=== PATIENT | female | born 1960 | race Caucasian/White ===

== ENCOUNTER 2016-12-13 15:20 | Outpatient (CLI) | payer OTHER | END 2016-12-13 15:21 | disposition home or self-care (01) | DX: M51.36 Other intervertebral disc degeneration, lumbar region (principal) ==

== ENCOUNTER 2017-02-08 14:29 | Emergency (ER) | payer OTHER | END 2017-02-08 18:40 | disposition home or self-care (01) | DX: R20.9 Unspecified disturbances of skin sensation (principal); R03.0 Elevated blood-pressure reading, without diagnosis of hypertension; E83.52 Hypercalcemia; E89.2 Postprocedural hypoparathyroidism ==

== ENCOUNTER 2017-02-15 09:34 | Outpatient (CLI) | payer OTHER | END 2017-02-15 09:35 | disposition home or self-care (01) | DX: E21.0 Primary hyperparathyroidism (principal) ==

== ENCOUNTER 2017-03-14 10:01 | Outpatient (CLI) | payer OTHER | END 2017-03-14 10:02 | disposition home or self-care (01) | DX: E53.8 Deficiency of other specified B group vitamins (principal) ==

== ENCOUNTER 2017-08-02 11:47 | Outpatient (CLI) | payer OTHER | END 2017-08-02 11:48 | disposition home or self-care (01) | LOC: LAB 11:47 | PROVIDERS: ATTEND Surgery | DX: E21.3 Hyperparathyroidism, unspecified (principal) | CPT/HCPCS: 36415; 82310 ==

== ENCOUNTER 2017-08-03 15:02 | Outpatient (CLI) | payer OTHER ==
--- NOTE | 2017-08-04 09:59 | XRAY Report ---
LEFT HIP AND PELVIS: 08/03/2017 CLINICAL INDICATION: Left hip pain. FINDINGS: Frontal view of the hips and pelvis and frogleg lateral view of the left hip demonstrate n o evidence of fracture or dislocation. The joint spaces are preserved. No radiopaque foreign body i s seen in the soft tissues. IMPRESSION: NORMAL LEFT HIP AND PELVIS. JOB #: [id number] EXT JOB #:[id number]
== END 2017-08-03 15:03 | disposition home or self-care (01) ==
LOC: DI 15:02
PROVIDERS: ATTEND Physician Assistant Medical
DX: M25.552 Pain in left hip (principal)

== ENCOUNTER 2017-10-12 07:54 | Outpatient (CLI) | payer OTHER ==
--- NOTE | 2017-10-12 11:13 | MRI Report ---
EXAM: LEFT HIP MRI WITHOUT CONTRAST EXAM DATE: 10/12/2017 08:45 AM. CLINICAL HISTORY: Left hip joint pain. COMPARISON: 08/03/2017 radiograph. TECHNIQUE: Multiplanar, multisequence T1-weighted and fluid-sensitive, small [id number] sequences of the hip and large [id number]-ah-[id number] sequences of the pelvis without contrast. Other: None. FINDINGS: Bones: No fractures or subluxations. No marrow edema or bone lesions. Left Hip: No acetabular retroversion. Femoral head/neck offset is within normal limits. No effusion o r loose bodies. The articular cartilage is intact. A full-thickness tear of the anterosuperior labrum can be seen at the 2 o'clock position (series 701, image 21). The ligamentum teres is intact. Other Joints: The visualized lumbar spine, sacroiliac joints, symphysis pubis, and contralateral hip are unremarkable. Musculature: No edema or fatty atrophy. The gluteus medius and minimus tendons are normal. The visua lized hamstring tendons are normal. The ischiofemoral space is normal. Pelvic Cavity: The visualized viscera are unremarkable. No lymphadenopathy. No free fluid in the pelv is. Other: The visualized sciatic nerves are unremarkable. No bursitis. The subcutaneous tissues are unre markable. IMPRESSION: 1. Full-thickness tear of the anterosuperior left labrum. [facility] MUSCULOSKELETAL RADIOLOGY SECTION Referring Provider Line: [phone] SITE ID: [id number]
== END 2017-10-12 07:55 | disposition home or self-care (01) ==
LOC: DI 07:54
PROVIDERS: ATTEND Physician Assistant Medical
DX: S73.192A Other sprain of left hip, initial encounter (principal)

== ENCOUNTER 2018-01-19 08:38 | Emergency (ER) | payer OTHER ==
[2018-01-19 09:04] VITALS: BP 143/88
--- NOTE | 2018-01-19 09:14 | ED Physician Documentation ---
PD HPI SKIN - Stated complaint Stated Complaint: FACE SWELLING - Chief complaint Chief Complaint: Allergic Rx - History obtained from History obtained from: Patient, Family (spouse) - History of Present Illness Timing - onset: How many days ago (2) Timing - details: Gradual onset, Now resolved Location: Face (swelling of lips.) Quality / character: Swelling Improved by: Benadryl Contributing factors: Unknown Similar symptoms before: Has not had sx before - Treatment prior to arrival Treatment prior to arrival: Benadryl 25 mg at 3 am. Review of Systems Constitutional: denies: Fever Eyes: denies: Photophobia, Irritation Ears: denies: Ear pain, Tinnitus/ringing Nose: denies: Congestion Throat: reports: Other (Slight swelling in throat last night, but not currently. ). denies: Sore throat Cardiac: denies: Chest pain / pressure, Palpitations Respiratory: denies: Dyspnea, Cough GI: denies: Abdominal Pain, Nausea, Vomiting : denies: Dysuria Skin: denies: Rash Musculoskeletal: denies: Extremity swelling Neurologic: denies: Focal weakness, Numbness, Headache PD PAST MEDICAL HISTORY - Past Medical History Endocrine/Autoimmune: Other (hypercalcemia) - Past Surgical History Past Surgical History: Yes Other past surgical history: Parathyroid surgery 01/2017. - Present Medications Home Medications: Ambulatory Orders Medication Instructions Recorded Confirmed Alendronate [Fosamax] 70 mg PO .FREQ 02/08/17 02/08/17 Estradiol [Vagifem] 1 tab .ROUTE DAILY 02/08/17 02/08/17 oxyCODONE [Roxicodone] 1 tab PO Q4HR 02/08/17 02/08/17 - Allergies Allergies/Adverse Reactions: Allergies Allergy/AdvReac Type Severity Reaction Status Date / Time camphor [From Biofreeze] Allergy Unknown Verified 01/19/18 09:21 capsaicin Allergy Unknown Verified 01/19/18 09:21 [From Salonpas (capsaicin/menthol)] meloxicam Allergy Hives Verified 01/19/18 09:21 menthol [From Biofreeze] Allergy Unknown Verified 01/19/18 09:21 Penicillins Allergy Hives Verified 02/08/17 14:34 - Social History Does the pt smoke?: No Smoking Status: Never smoker Does the pt drink ETOH?: No Does the pt have substance abuse?: No PD ED PE NORMAL - Vitals Vital signs reviewed: Yes (Borderline hypertension initially.) - General General: Alert and oriented X 3, No acute distress, Well developed/nourished - HEENT HEENT: Atraumatic, EOMI, Ears normal, Moist mucous membranes, Pharynx benign, Other (No swelling of lips currently.) - Neck Neck: Supple, no meningeal sign, No adenopathy, No JVD - Cardiac Cardiac: RRR, No murmur - Respiratory Respiratory: No respiratory distress, Clear bilaterally - Abdomen Abdomen: Soft, Non tender - Back Back: No CVA TTP - Derm Derm: No rash - Extremities Extremities: No edema, No calf tenderness / cord - Neuro Neuro: Alert and oriented X 3, No motor deficit, Normal speech Results - Vitals Vitals: Vital Signs - 24 hr 01/19/18 01/19/18 08:55 09:20 Temperature 36.6 C Heart Rate 70 Respiratory 18 Rate Blood Pressure 143/88 H O2 Saturation 96 Oxygen O2 Source Room air PD MEDICAL DECISION MAKING - ED course Complexity details: reviewed old records, considered differential, d/w patient, d/w family ED course: The patient's presentation is significant for transient lip swelling, which seems to have responded well to Benadryl that was taken at 3 AM today, 6 hours prior to arrival. There is no evidence of facial swelling currently, oropharynx is benign, and chest is clear to auscultation. It is unknown what is the likely allergen causing the patient's symptoms. There is no further evaluation or treatment that is clinically indicated at this time. I discussed with the patient and her symptomatic treatment, outpatient follow-up, and potentially worrisome signs or symptoms that should prompt reevaluation in the emergency department. Departure - Departure Disposition: 01 Home, Self Care Clinical Impression: Lip swelling Condition: Stable Instructions: ED Allergic Reaction General Other Follow-Up: Modesta Dewitt PA-C [Primary Care Provider] - Comments: You can use Benadryl up to 50 mg 3 times daily if needed for recurrent swelling or itching. Follow up with your primary physician within 1-2 weeks. Call to schedule an appointment. Return to the emergency department if you develop increasing difficulty swallowing, shortness of breath, or otherwise worsening symptoms.
== END 2018-01-19 09:31 | disposition home or self-care (01) ==
LOC: ED 08:38
DX: R22.9 Localized swelling, mass and lump, unspecified (principal)
CPT/HCPCS: 99282; 99283

== ENCOUNTER 2018-02-27 13:46 | Outpatient (CLI) | payer OTHER ==
[2018-02-27 14:17] LABS: BASOPHILS # (AUTO) 0.1 10^3/uL (0.0-0.1); EOSINOPHILS # (AUTO) 0.1 10^3/uL (0.0-0.7); EOSINOPHILS % (AUTO) 1.1 %; HGB - HEMOGLOBIN 13.5 g/dL (12.0-16.0); LYMPHOCYTES # (AUTO) 1.5 10^3/uL (1.5-3.5); LYMPHOCYTES % (AUTO) 27.2 %; MEAN CORPUSCULAR HEMOGLOBIN 28.5 pg (27.0-31.0); MEAN CORPUSCULAR HGB CONC 33.5 g/dL (32.0-36.0); MONOCYTES # (AUTO) 0.4 10^3/uL (0.0-1.0); NEUTROPHILS # (AUTO) 3.4 10^3/uL (1.5-6.6); NEUTROPHILS % (AUTO) 63.7 %; PLT - PLATELET COUNT 216 10^3/uL (130-450); RED BLOOD COUNT 4.74 10^6/uL (4.20-5.40); RED CELL DISTRIBUTION WIDTH 13.5 % (12.0-15.0); WHITE BLOOD COUNT 5.4 x10^3/uL (4.8-10.8)
== END 2018-02-27 13:47 | disposition home or self-care (01) ==
LOC: LAB 13:46
PROVIDERS: ATTEND Allergy & Immunology
DX: T78.3XXA Angioneurotic edema, initial encounter (principal)
CPT/HCPCS: 36415; 81599; 85025; 86140; 86160; 86161

== ENCOUNTER 2018-03-06 13:01 | Outpatient (CLI) | payer OTHER | END 2018-03-06 13:02 | disposition home or self-care (01) | LOC: LAB 13:01 | PROVIDERS: ATTEND Orthopaedic Surgery | DX: T78.3XXA Angioneurotic edema, initial encounter (principal) | CPT/HCPCS: 36415; 86160; 86161 ==

== ENCOUNTER 2018-11-06 07:38 | Outpatient (CLI) | payer OTHER ==
[2018-11-06 08:12] LABS: EOSINOPHILS % (AUTO) 1.2 %; HGB - HEMOGLOBIN 14.4 g/dL (12.0-16.0); LYMPHOCYTES # (AUTO) 1.3 10^3/uL (1.5-3.5); LYMPHOCYTES % (AUTO) 34.3 %; MEAN CORPUSCULAR HGB CONC 33.9 g/dL (32.0-36.0); MEAN CORPUSCULAR VOLUME 85.3 fL (81.0-99.0); MONOCYTES # (AUTO) 0.3 10^3/uL (0.0-1.0); MONOCYTES % (AUTO) 7.9 %; NEUTROPHILS # (AUTO) 2.2 10^3/uL (1.5-6.6); NEUTROPHILS % (AUTO) 55.6 %; PLT - PLATELET COUNT 241 10^3/uL (130-450); RED BLOOD COUNT 4.97 10^6/uL (4.20-5.40); RED CELL DISTRIBUTION WIDTH 12.9 % (12.0-15.0); WHITE BLOOD COUNT 3.9 x10^3/uL (4.8-10.8)
[2018-11-06 08:32] LABS: ALBUMIN 4.4 g/dL (3.2-5.5); ALBUMIN/GLOBULIN RATIO 1.6 (1.0-2.2); ALKALINE PHOSPHATASE 48 IU/L (42-121); ALT ALANINE AMINOTRANSFERASE 20 IU/L (10-60); AST ASPARTATE AMINOTRANSFERASE 23 IU/L (10-42); BILIRUBIN,TOTAL 0.7 mg/dL (0.2-1.0); BUN - BLOOD UREA NITROGEN 15 mg/dL (6-20); CARBON DIOXIDE - CO2 31 mmol/L (21-32); CHLORIDE 104 mmol/L (101-111); CHOLESTEROL 231 mg/dL; CREATININE 0.8 mg/dL (0.4-1.0); GFR - MDRD 73 (>89); GLUCOSE 99 mg/dL (70-100); HDL CHOLESTEROL 76 mg/dL; LDL CHOLESTEROL,CALCULATED 134 mg/dL; LDL/HDL RATIO 1.8 (<4.4); SODIUM 138 mmol/L (135-145); TOTAL PROTEIN 7.1 g/dL (6.7-8.2); VLDL CHOLESTEROL 21 mg/dL
== END 2018-11-06 07:39 | disposition home or self-care (01) ==
LOC: LAB 07:38
PROVIDERS: ATTEND Physician Assistant Medical
DX: Z00.00 Encounter for general adult medical examination without abnormal findings (principal); E83.51 Hypocalcemia
CPT/HCPCS: 36415; 80053; 80061; 82306; 83721; 84443; 85025

== ENCOUNTER 2018-12-14 05:07 | Emergency (ER) | payer OTHER ==
[2018-12-14] MEDS ORDERED: SODIUM CHLORIDE 0.9% 1,000 ML IV ONE (05:39)
[2018-12-14 06:09] LABS: BASOPHILS % (AUTO) 0.9 %; HGB - HEMOGLOBIN 14.1 g/dL (12.0-16.0); LYMPHOCYTES # (AUTO) 1.1 10^3/uL (1.5-3.5); LYMPHOCYTES % (AUTO) 29.9 %; MEAN CORPUSCULAR HEMOGLOBIN 29.1 pg (27.0-31.0); MEAN CORPUSCULAR HGB CONC 33.6 g/dL (32.0-36.0); MEAN CORPUSCULAR VOLUME 86.5 fL (81.0-99.0); MONOCYTES # (AUTO) 0.3 10^3/uL (0.0-1.0); MONOCYTES % (AUTO) 8.6 %; NEUTROPHILS # (AUTO) 2.3 10^3/uL (1.5-6.6); NEUTROPHILS % (AUTO) 59.6 %; PLT - PLATELET COUNT 204 10^3/uL (130-450); RED BLOOD COUNT 4.86 10^6/uL (4.20-5.40); WHITE BLOOD COUNT 3.8 x10^3/uL (4.8-10.8)
[2018-12-14 06:18] LABS: ALBUMIN 3.9 g/dL (3.2-5.5); ALBUMIN/GLOBULIN RATIO 1.3 (1.0-2.2); BILIRUBIN,TOTAL 0.7 mg/dL (0.2-1.0); CALCIUM 8.9 mg/dL (8.5-10.3); CREATININE 0.7 mg/dL (0.4-1.0)
[2018-12-14] MEDS ORDERED: IOVERSOL 320 100 ML VIAL IVP ONE ×2 (06:26→06:34)
[2018-12-14] MEDS ORDERED: IOVERSOL 320 50 ML VIAL PO ONE (06:34)
--- NOTE | 2018-12-14 06:48 | CT Report ---
Reason: pain, no BM Procedure Date: 12/14/2018 Accession Number: [id number] / [id number] Procedure: CT - Abdomen/Pelvis W/ CPT Code: FULL RESULT: EXAM: CT ABDOMEN AND PELVIS EXAM DATE: 12/14/2018 06:38 AM. CLINICAL HISTORY: Pain, no BM. COMPARISONS: None. TECHNIQUE: Routine helical CT imaging was performed through the abdomen and pelvis. IV contrast: [id number] 90ML. Enteric contrast: No. Reconstructions: Coronal and sagittal. In accordance with CT protocol optimization, one or more of the following dose reduction techniques were utilized for this exam: automated exposure control, adjustment of mA and/or KV based on patient size, or use of iterative reconstructive technique. FINDINGS: Lung Bases: Unremarkable. Liver: Normal. No masses. Gallbladder/Bile Ducts: Unremarkable. Spleen: Normal. Pancreas: Normal. Adrenal Glands: Normal. Kidneys: Cortical cysts. No hydronephrosis or nephrolithiasis. Peritoneal Cavity/Bowel: Normal. No free fluid, free air or adenopathy. No masses or acute inflammatory process. The appendix is well visualized and normal. Pelvic Organs: Normal. The bladder and visualized pelvic organs are within normal limits. Vasculature: No aneurysms or other significant abnormality. Bones: Mild degenerative changes. Other: Gas in the left breast, compatible with recent lumpectomy. IMPRESSION: No evidence of bowel obstruction. No evident etiology for patient's pain. [facility]
--- NOTE | 2018-12-14 06:56 | ED Physician Documentation ---
PD HPI ABD PAIN - Stated complaint Stated Complaint: ABD PAIN - Chief complaint Chief Complaint: Abd Pain - History obtained from History obtained from: Patient - History of Present Illness Timing - onset: How many hours ago (6) Timing - duration: Hours (6) Timing - details: Gradual onset Pain level max: 3 Pain level now: 3 Severity Comments: mild Quality: Cramping Location: All over / everywhere Radiation: No: Chest, Improved by: No: Eating, Laying still Worsened by: No: Eating, Moving Associated symptoms: Nausea. No: Fever, Vomiting Review of Systems Constitutional: reports: Reviewed and negative Eyes: reports: Reviewed and negative Ears: reports: Reviewed and negative Nose: reports: Reviewed and negative Throat: reports: Reviewed and negative Cardiac: reports: Reviewed and negative Respiratory: reports: Reviewed and negative GI: reports: Reviewed and negative : reports: Reviewed and negative Skin: reports: Reviewed and negative Musculoskeletal: reports: Reviewed and negative Neurologic: reports: Reviewed and negative Psychiatric: reports: Reviewed and negative Endocrine: reports: Reviewed and negative Immunocompromised: reports: Reviewed and negative PD PAST MEDICAL HISTORY - Past Medical History Past Medical History: Yes Endocrine/Autoimmune: Other 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 & MEDIA CORRESPONDENT: Breast cancer - Past Surgical History Past Surgical History: Yes Other past surgical history: Reviewed and not pertinent - Present Medications Home Medications: Ambulatory Orders Medication Instructions Recorded Confirmed Alendronate [Fosamax] 70 mg PO .FREQ 02/08/17 02/08/17 Estradiol [Vagifem] 1 tab .ROUTE DAILY 02/08/17 02/08/17 oxyCODONE [Roxicodone] 1 tab PO Q4HR 02/08/17 02/08/17 - Allergies Allergies/Adverse Reactions: Allergies Allergy/AdvReac Type Severity Reaction Status Date / Time camphor [From Biofreeze] Allergy Unknown Verified 12/14/18 05:16 capsaicin Allergy Unknown Verified 12/14/18 05:16 [From Salonpas (capsaicin/menthol)] meloxicam Allergy Hives Verified 12/14/18 05:16 menthol [From Biofreeze] Allergy Unknown Verified 12/14/18 05:16 Penicillins Allergy Hives Verified 12/14/18 05:16 - Social History Does the pt smoke?: No Smoking Status: Never smoker Does the pt drink ETOH?: Yes Does the pt have substance abuse?: No - Family History Family history: reports: Other (Reviewed and not pertinent) - Immunizations Immunizations are current?: Yes - POLST Patient has POLST: Yes PD ED PE NORMAL - Vitals Vital signs reviewed: Yes - General General: Alert and oriented X 3, No acute distress - HEENT HEENT: PERRL - Neck Neck: Supple, no meningeal sign - Cardiac Cardiac: RRR, No murmur - Respiratory Respiratory: Clear bilaterally - Abdomen Abdomen: Normal bowel sounds, Soft, Non tender, Non distended - Derm Derm: Warm and dry - Extremities Extremities: No deformity - Neuro Neuro: Alert and oriented X 3 - Psych Psych: Normal mood, Normal affect Results - Vitals Vitals: Vital Signs - 24 hr 12/14/18 05:12 Temperature 36.8 C Heart Rate 66 Respiratory 16 Rate Blood Pressure 157/75 H O2 Saturation 100 Oxygen O2 Source Room air - Labs Labs: Laboratory Tests 12/14/18 12/14/18 05:57 05:57 WBC 3.8 L RBC 4.86 Hgb 14.1 Hct 42.0 MCV 86.5 MCH 29.1 MCHC 33.6 RDW 13.0 Plt Count 204 MPV 9.0 Neut # (Auto) 2.3 Lymph # (Auto) 1.1 L [place] # (Auto) 0.3 Eos # (Auto) 0.0 Baso # (Auto) 0.0 Absolute Nucleated RBC 0.00 Nucleated RBC % 0.0 Sodium 139 Potassium 4.0 Chloride 102 Carbon Dioxide 30 Anion Gap 7.0 BUN 18 Creatinine 0.7 Estimated GFR (MDRD) 86 L Glucose 104 H Calcium 8.9 Total Bilirubin 0.7 AST 29 ALT 36 Alkaline Phosphatase 58 Total Protein 7.0 Albumin 3.9 Globulin 3.1 Albumin/Globulin Ratio 1.3 Lipase 27 - Rads (name of study) CT Abd Pel Radiology: Final report received (WNL) PD MEDICAL DECISION MAKING - ED course Complexity details: reviewed results, re-evaluated patient, considered differential, d/w patient, d/w family ED course: 58-year-old female with history of breast cancer presents with abdominal pain. Labs notable for neutropenia. CT abdomen pelvis unremarkable. Patient discharged with return precautions. Departure - Departure Disposition: 01 Home, Self Care Clinical Impression: Abdominal pain Qualifiers: Abdominal location: generalized Qualified Code(s): R10.84 - Generalized ab dominal pain Condition: Good Instructions: Abdominal Pain Follow-Up: Modesta Dewitt PA-C [Primary Care Provider] - Comments: No acute cause for your abdominal pain has been identified. Take MiraLAX as needed for constipation.All up with PCP within 24 hours for recheck. Return with worsening symptoms.
[2018-12-14 07:15] VITALS: BP 142/83
== END 2018-12-14 07:16 | disposition home or self-care (01) ==
LOC: ED 05:07
DX: R10.84 Generalized abdominal pain (principal); D70.9 Neutropenia, unspecified; C50.919 Malignant neoplasm of unspecified site of unspecified female breast
CPT/HCPCS: 36415; 74177; 80053; 83690; 85025; 99283

== ENCOUNTER 2018-12-24 09:56 | Outpatient (CLI) | payer OTHER | END 2018-12-24 09:57 | disposition home or self-care (01) | LOC: NS 09:56 | PROVIDERS: ATTEND Physician Assistant Medical | DX: Z71.3 Dietary counseling and surveillance (principal); C50.912 Malignant neoplasm of unspecified site of left female breast; Z68.1 Body mass index [BMI] 19.9 or less, adult | CPT/HCPCS: 97802 ==

== ENCOUNTER 2019-01-09 19:06 | Inpatient (IN) | payer OTHER ==
[2019-01-09 19:38] LABS: BILIRUBIN,URINE NEGATIVE (NEGATIVE); GLUCOSE, URINE (UA) 100 mg/dL (NEGATIVE); KETONES,URINE (UA) NEGATIVE (NEGATIVE); LEUKOCYTE ESTERASE, URINE NEGATIVE (NEGATIVE); NITRITE,URINE NEGATIVE (NEGATIVE); OCCULT BLOOD,URINE TRACE-LYSE (NEGATIVE); PH,URINE 5.5 PH (5.0-7.5); PROTEIN,URINE NEGATIVE (NEGATIVE); UROBILINOGEN,URINE 0.2 (NORMAL) E.U./dL (NORMAL)
[2019-01-09 19:40] LABS: CLARITY,URINE CLEAR (CLEAR)
[2019-01-09 19:57] LABS: BASOPHILS % (AUTO) 1.3 %; EOSINOPHILS % (AUTO) 0.9 %; HGB - HEMOGLOBIN 12.1 g/dL (12.0-16.0); MEAN CORPUSCULAR HEMOGLOBIN 28.4 pg (27.0-31.0); MEAN CORPUSCULAR HGB CONC 33.7 g/dL (32.0-36.0); MEAN CORPUSCULAR VOLUME 84.5 fL (81.0-99.0); MEAN PLATELET VOLUME 8.8 fL (7.9-10.8); MONOCYTES % (AUTO) 26.7 %; NEUTROPHILS % (AUTO) 5.1 %; PLT - PLATELET COUNT 146 10^3/uL (130-450); RED BLOOD COUNT 4.25 10^6/uL (4.20-5.40); RED CELL DISTRIBUTION WIDTH 12.2 % (12.0-15.0)
[2019-01-09 20:04] LABS: WHITE BLOOD COUNT 0.6 x10^3/uL (4.8-10.8)
[2019-01-09 20:06] LABS: ABNORMAL LYMPHS % (MANUAL) 0 %; BAND NEUTROPHILS % (MANUAL) 0 %
[2019-01-09 20:08] LABS: ALBUMIN 3.6 g/dL (3.2-5.5); ALBUMIN/GLOBULIN RATIO 1.4 (1.0-2.2); BILIRUBIN,TOTAL 0.5 mg/dL (0.2-1.0); CALCIUM 8.7 mg/dL (8.5-10.3); CREATININE 0.7 mg/dL (0.4-1.0); TOTAL PROTEIN 6.2 g/dL (6.7-8.2)
--- NOTE | 2019-01-09 20:12 | ED Physician Documentation ---
PD HPI URI - Stated complaint Stated Complaint: CHEMO/FEVER CHILLS - Chief complaint Chief Complaint: Fever - History obtained from History obtained from: Patient - History of Present Illness Timing - onset: Today Timing duration: Hours Timing details: Abrupt onset Associated symptoms: Fever (She has had general malaise and nausea for the last several days she thought related to the chemotherapy she had received 8 days ago. She did receive chemotherapy again yesterday at a smaller dose and now talked with her oncologist yesterday. She states she had some diarrhea 2 days ago and was controlled with Imodium. Normal bowel movements the next couple of days. She did not have any runny nose cough or sore throat. Her is feeling well without any illness. She developed an abrupt onset of general malaise aches and fevers today. She had a temperature of 101 at home. She came in for evaluation after calling the on-call oncologist.) Contributing factors: Immunocompromised, Other (post chemotherapy). No: Sick contact (Her is feeling well at home. She had been to the [facility] clinic yesterday but says she wore a mask and wash her hands well. She did receive chemotherapy 8 days ago. She had not been out of the house otherwise.), Travel Similar symptoms before: Has not had sx before Recently seen: Clinic ([facility] for chemotherapy) Review of Systems Constitutional: reports: Fever, Chills, Myalgias, Fatigue Nose: denies: Rhinorrhea / runny nose, Congestion Throat: denies: Sore throat Respiratory: denies: Dyspnea, Cough GI: reports: Abdominal Pain (mild crampy for the past 4-5 days), Nausea, Diarrhea (3-4 days ago for just one day, no BMs the past 2 days.). denies: Abdominal Swelling, Vomiting, Bloody / black stool : denies: Dysuria, Frequency Skin: denies: Rash (denies redness around the port.), Lesions Neurologic: reports: Generalized weakness. 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 - Past Surgical History Past Surgical History: Yes - Present Medications Home Medications: Ambulatory Orders Medication Instructions Recorded Confirmed oxyCODONE [Roxicodone] 1 tab PO Q4HR 02/08/17 01/09/19 Dexamethasone 8 mg PO BID 3 Days #12 tablet 12/28/18 01/09/19 LORazepam [Lorazepam] 0.5 mg PO Q6H PRN 01/08/19 01/09/19 Ondansetron HCl [Zofran] 4 mg PO Q4H PRN #30 tablet 01/08/19 01/09/19 Prochlorperazine Maleate 10 mg PO Q6H PRN 01/08/19 01/09/19 [Compazine] Acetaminophen [Tylenol] 1 tab PO Q4HR PRN 01/09/19 01/09/19 Cannabidiol (Cbd) Extract 01/09/19 [Epidiolex] Escitalopram [Lexapro] 1 tab PO DAILY 01/09/19 01/09/19 Loperamide [Imodium] 1 cap PO DAILY PRN 01/09/19 01/09/19 Polyethylene Glycol 3350 [Miralax] 1 packet PO DAILY PRN 01/09/19 01/09/19 - Allergies Allergies/Adverse Reactions: Allergies Allergy/AdvReac Type Severity Reaction Status Date / Time camphor [From Biofreeze] Allergy Unknown Verified 01/09/19 19:51 capsaicin Allergy Unknown Verified 01/09/19 19:51 [From Salonpas (capsaicin/menthol)] meloxicam Allergy Hives Verified 01/09/19 19:51 menthol [From Biofreeze] Allergy Unknown Verified 01/09/19 19:51 Penicillins Allergy Hives Verified 01/09/19 19:51 - Social History Does the pt smoke?: No Smoking Status: Never smoker Does the pt drink ETOH?: Yes Does the pt have substance abuse?: No - Immunizations Immunizations are current?: Yes - POLST Patient has POLST: Yes PD ED PE NORMAL - Vitals Vital signs reviewed: Yes - General General: Alert and oriented X 3, Well developed/nourished - HEENT HEENT: Ears normal, Moist mucous membranes, Pharynx benign - Neck Neck: Supple, no meningeal sign, No adenopathy - Cardiac Cardiac: RRR, No murmur - Respiratory Respiratory: Clear bilaterally, Other (chestwall port area without redness nor swelling. ) - Abdomen Abdomen: Normal bowel sounds, Soft, Non distended, No organomegaly, Other (mild general tenderness mid abdomen without percussion nor rebound tenderness. ) - Female Female : Deferred - Rectal Rectal: Deferred - Back Back: No CVA TTP - Derm Derm: Normal color, Warm and dry - Extremities Extremities: Normal ROM s pain, No edema, No calf tenderness / cord - Neuro Neuro: Alert and oriented X 3, No motor deficit, Normal speech Results - Vitals Vitals: Vital Signs - 24 hr 01/09/19 01/09/19 01/09/19 19:10 20:28 20:53 Temperature 38.5 C H 38.6 C H Heart Rate 84 77 79 Respiratory 18 16 17 Rate Blood Pressure 155/67 H 143/70 H 146/72 H O2 Saturation 97 100 99 01/09/19 01/09/19 01/09/19 21:00 21:37 22:00 Temperature 37.0 C 37.4 C Heart Rate 82 85 81 Respiratory 14 18 17 Rate Blood Pressure 147/83 H 138/62 H 135/63 H O2 Saturation 99 100 99 Oxygen O2 Source Room air - Labs Labs: Laboratory Tests 01/09/19 01/09/19 01/09/19 19:27 19:35 19:35 WBC 0.6 L* RBC 4.25 Hgb 12.1 Hct 35.9 L MCV 84.5 MCH 28.4 MCHC 33.7 RDW 12.2 Plt Count 146 MPV 8.8 Neut # (Auto) Not Reportable Lymph # (Auto) Not Reportable [place] # (Auto) Not Reportable Eos # (Auto) Not Reportable Baso # (Auto) Not Reportable Absolute Nucleated RBC Not Reportable Total Counted 50 Band Neuts % (Manual) 0 Reactive Lymphs % (Man) 10 Abnorm Lymph % (Manual) 0 Nucleated RBC % Not Reportable Neutrophils # (Manual) 0.0 L* Lymphocytes # (Manual) 0.5 L Monocytes # (Manual) 0.1 Eosinophils # (Manual) 0.0 Basophils # (Manual) 0.0 Differential Comment MANUAL DIFFERENTIAL Manual Slide Review Indicated Platelet Estimate NORMAL (130-450,000) Platelet Morphology NORMAL APPEARANCE RBC Morph Micro Appear NORMAL APPEARANCE Sodium 134 L Potassium 3.6 Chloride 98 L Carbon Dioxide 27 Anion Gap 9.0 BUN 17 Creatinine 0.7 Estimated GFR (MDRD) 86 L Glucose 131 H Lactic Acid Calcium 8.7 Total Bilirubin 0.5 AST 35 ALT 45 Alkaline Phosphatase 59 Total Protein 6.2 L Albumin 3.6 Globulin 2.6 Albumin/Globulin Ratio 1.4 Lipase 28 Urine Color YELLOW Urine Clarity CLEAR Urine pH 5.5 Ur Specific [place] 1.020 Urine Protein NEGATIVE Urine Glucose (UA) 100 H Urine Ketones NEGATIVE Urine Occult Blood TRACE-LYSE Urine Nitrite NEGATIVE Urine Bilirubin NEGATIVE Urine Urobilinogen 0.2 (NORMAL) Ur Leukocyte Esterase NEGATIVE Ur Microscopic Review NOT INDICATED Urine Culture Comments NOT INDICATED Influenza A (Rapid) Influenza B (Rapid) 01/09/19 01/09/19 19:35 19:40 WBC RBC Hgb Hct MCV MCH MCHC RDW Plt Count MPV Neut # (Auto) Lymph # (Auto) [place] # (Auto) Eos # (Auto) Baso # (Auto) Absolute Nucleated RBC Total Counted Band Neuts % (Manual) Reactive Lymphs % (Man) Abnorm Lymph % (Manual) Nucleated RBC % Neutrophils # (Manual) Lymphocytes # (Manual) Monocytes # (Manual) Eosinophils # (Manual) Basophils # (Manual) Differential Comment Manual Slide Review Platelet Estimate Platelet Morphology RBC Morph Micro Appear Sodium Potassium Chloride Carbon Dioxide Anion Gap BUN Creatinine Estimated GFR (MDRD) Glucose Lactic Acid 1.2 Calcium Total Bilirubin AST ALT Alkaline Phosphatase Total Protein Albumin Globulin Albumin/Globulin Ratio Lipase Urine Color Urine Clarity Urine pH Ur Specific [place] Urine Protein Urine Glucose (UA) Urine Ketones Urine Occult Blood Urine Nitrite Urine Bilirubin Urine Urobilinogen Ur Leukocyte Esterase Ur Microscopic Review Urine Culture Comments Influenza A (Rapid) Negative Influenza B (Rapid) Negative - Rads (name of study) chest xray Radiology: Prelim report reviewed (no infiltrates), EMP read contemporaneously, See rad report PD MEDICAL DECISION MAKING - ED course Complexity details: reviewed results, re-evaluated patient, considered differential, d/w patient, d/w networks computer consultant (Dr. Blackmon, injection wax molder Oncology, at request of patient/spouse, who confirmed broad abx coverage and admission, given no obvious source and neutropenic. ) Departure - Departure Disposition: 66 [facility] DC/Xfer Clinical Impression: Neutropenic fever, Status post chemotherapy Condition: Stable Record reviewed to determine appropriate education?: Yes
[2019-01-09 20:24] LABS: NEUTROPHILS % (MANUAL) 8 %
[2019-01-09 20:25] LABS: LYMPHOCYTES # (MANUAL) 0.5 10^3/uL (1.5-3.5); LYMPHOCYTES % (MANUAL) 70 %; MONOCYTES # (MANUAL) 0.1 10^3/uL (0.0-1.0)
[2019-01-09 20:26] LABS: PLATELET ESTIMATE, MANUAL NORMAL (130-450,000) (NORMAL); PLATELET MORPHOLOGY NORMAL APPEARANCE (NORMAL); RBC MORPHOLOGY (MULTIPLE) NORMAL APPEARANCE (NORMAL)
[2019-01-09 20:27] LABS: DIFFERENTIAL COMMENT MANUAL DIFFERENTIAL
[2019-01-09] MEDS ORDERED: CEFEPIME 2 GM in SODIUM CHLORIDE 0.9% MINIBAG 100 ML IV STA (20:30)
[2019-01-09] MEDS ORDERED: VANCOMYCIN INJ 1.5 GM in SODIUM CHLORIDE 0.9% 500 ML IV STA (20:30)
[2019-01-09] MEDS ORDERED: SODIUM CHLORIDE 0.9% 1,000 ML IV ONE (20:30)
[2019-01-09] MEDS ORDERED: ACETAMINOPHEN 325 MG TABLET PO STA (20:33)
--- NOTE | 2019-01-09 20:34 | XRAY Report ---
Reason: fever Procedure Date: 01/09/2019 Accession Number: [id number] / [id number] Procedure: XR - Chest 1 View X-Ray CPT Code: 27607 FULL RESULT: EXAM: CHEST RADIOGRAPHY EXAM DATE: 01/09/2019 07:59 PM. CLINICAL HISTORY: Fever. COMPARISON: None. TECHNIQUE: 1 view. FINDINGS: Lungs/Pleura: No focal opacities evident. No pleural effusion. No pneumothorax. Mediastinum: Within exam limitations, the cardiomediastinal contour is normal. Other: Right Port-A-Cath central line with the tip at the distal superior vena cava. Multiple surgical clips at the left breast and axillary region. IMPRESSION: No acute cardiopulmonary disease seen. [facility]
[2019-01-09] MEDS ORDERED: ONDANSETRON 4 MG/2 ML VIAL IVP PRN (22:18)
[2019-01-09] MEDS ORDERED: PROMETHAZINE INJ 12.5 MG in SODIUM CHLORIDE 0.9% 50 ML IV PRN (22:39)
[2019-01-09] MEDS ORDERED: VANCOMYCIN PER PHARMACY 0.001 GM in SODIUM CHLORIDE 0.9% 250 ML IV PRN (23:00)
--- NOTE | 2019-01-09 23:26 | HISTORY & PHYSICAL EXAMINATION ---
Chief Complaint - Chief Complaint Chief Complaint: fever History of Present Illness - Admitted From Admitted From:: [facility] ED - History Obtained From Records Reviewed: yes History obtained from: patient - History of Present Illness HPI Comment/Other: Patient is a 58 y/o female who presented to the ED with complain of fever and chills which started today. She had a temperature of 101 F. She reports aching all over and feeling tired. She had 3 episodes of diarrhea 2 days ago for which she took immodium and has not had any bowel movement since. She reports abdominal cramps. She also reported nausea and vomiting. She denied chest pain or ISIAH. She has left infiltrating ductal carcinoma (ER+ [place]- HER2+) for which she sees Dr Victoria. She started the first of six cycles of chemotherapy on 01/01/19. She received taxotere. She also gets weekly herceptin. and had her second dose on 01/08/19. Work up in the ED showed a WBC of 0.6 and ANC of 0.0. As a result she is being admitted for further treatment. History - Past Medical History Endocrine/Autoimmune: reports: Other [employer]: reports: Breast cancer Psych: reports: Anxiety MRSA Hx?: No Other Past Medical History: Insomnia. Hypercalcemia s/p parathyroidectomy - Past Surgical History General: reports: Other (parathyroidectomy, left breast lumpectomy with lymph node biopsies ) - Family & Social History Family History Comment/Other: Mother: Living arrangement: At home Living Situation: With spouse/s.o. - Substance History Use: Uses substance without health or social issues: NONE - POLST Patient has POLST: Yes POLST Status: Full Code Meds/Allgy - Home Medications Home Medications: Ambulatory Orders Medication Instructions Recorded Confirmed oxyCODONE [Roxicodone] 1 tab PO Q4HR 02/08/17 01/09/19 Dexamethasone 8 mg PO BID 3 Days #12 tablet 12/28/18 01/09/19 LORazepam [Lorazepam] 0.5 mg PO Q6H PRN 01/08/19 01/09/19 Ondansetron HCl [Zofran] 4 mg PO Q4H PRN #30 tablet 01/08/19 01/09/19 Prochlorperazine Maleate 10 mg PO Q6H PRN 01/08/19 01/09/19 [Compazine] Acetaminophen [Tylenol] 1 tab PO Q4HR PRN 01/09/19 01/09/19 Cannabidiol (Cbd) Extract 01/09/19 [Epidiolex] Escitalopram [Lexapro] 1 tab PO DAILY 01/09/19 01/09/19 Loperamide [Imodium] 1 cap PO DAILY PRN 01/09/19 01/09/19 Polyethylene Glycol 3350 [Miralax] 1 packet PO DAILY PRN 01/09/19 01/09/19 - Allergies Allergies/Adverse Reactions: Allergies Allergy/AdvReac Type Severity Reaction Status Date / Time camphor [From Biofreeze] Allergy Unknown Verified 01/09/19 19:51 capsaicin Allergy Unknown Verified 01/09/19 19:51 [From Salonpas (capsaicin/menthol)] meloxicam Allergy Hives Verified 01/09/19 19:51 menthol [From Biofreeze] Allergy Unknown Verified 01/09/19 19:51 Penicillins Allergy Hives Verified 01/09/19 19:51 Review of Systems - Constitutional Constitutional: reports: Fatigue, Fever, Chills - Eyes Eyes: denies: Pain, Blurred vision, Dipolpia - Ears, Nose & Throat Ears, Nose & Throat: denies: Ear pain, Nasal pain, Sore throat - Cardiovascular Cariovascular: denies: Chest pain, Edema, Lightheadedness, Exertional dyspnea - Respiratory Respiratory: denies: Cough, Sputum production, Wheezing, Snoring, SOB at rest - Gastrointestinal Gastrointestinal: reports: Diarrhea, Nausea, Vomiting, Other (abdominal cramps) - Genitourinary Genitourinary: denies: Dysuria, Frequency, Urgency, Hematuria - Musculoskeletal Musculoskeletal: reports: Joint pain - Integumentary Integumentary: denies: Rash, Pruritis, Lesions, Dryness - Neurological Neurological: denies: General weakness, Headache, Dizziness - Psychiatric Psychiatric: denies: Depression, Delusions, Hallucinations - Endocrine Endocrine: denies: Polyuria, Polydypsia, Polyphagia - Hematologic/Lymphatic Hematologic/Lymphatic: denies: Anemia, Bruising, Petechiae Prior Level of Functionality: Lives at home with her . Is independent of activities of daily living Exam - Vital Signs Vital Signs: Vital Signs x48h Temp Pulse Resp BP Pulse Ox 01/09/19 22:53 375 C H 85 15 125/59 L 99 01/09/19 22:00 37.4 C 81 17 135/63 H 99 01/09/19 21:37 85 18 138/62 H 100 01/09/19 21:00 37.0 C 82 14 147/83 H 99 01/09/19 20:53 79 17 146/72 H 99 01/09/19 20:28 38.6 C H 77 16 143/70 H 100 01/09/19 19:10 38.5 C H 84 18 155/67 H 97 - Physical Exam General Appearance: positive: Alert, Mild distress Eyes Bilateral: positive: Normal inspection ENT: positive: ENT inspection nml Neck: positive: Nml inspection, No JVD, Trachea midline Respiratory: positive: Chest non-tender, No respiratory distress, Breath sounds nml. negative: Wheezes, Rales, Rhonchi Cardiovascular: positive: Regular rate & rhythm, No murmur Abdomen: positive: Non-tender, Nml bowel sounds, No distention. negative: Gu arding, Rebound Skin: positive: Color nml, No rash, Warm, Dry Extremities: positive: Non-tender, Nml appearance, No pedal edema Neurologic/Psychiatric: positive: Oriented x3 Sepsis Event Note (H) - Sepsis Criteria Sepsis Criteria: Suspected or Documented, Recorded Temperature greater than 38.3C or Less than 36C Conclusion/Plan - Problem List (1) Neutropenic fever Conclusion/Plan: Blood cultures drawn Patient started on vancomycin and cefepime. Will continue. On neutropenic precaution and a neutropenic diet Tylenol for fever Dr Blackmon (oncology) was contacted by the ED and aware of patient's admission ?Filgrastim (2) Infiltrating ductal carcinoma of breast Conclusion/Plan: Patient follow with Dr Victoria at the [facility] Chemotherapy started 01/01/19. 1 of 6 cycles. Taxotere given Herceptin weekly. Second dose 01/08/19 Dr Blackmon was contacted by the ED Qualifiers: Laterality: left Qualified Code(s): C50.912 - Malignant neoplasm of unspecified site of left female breast (3) Anxiety Conclusion/Plan: On lorazepam - Lab Results Fish Bones: 01/09/19 19:35 01/09/19 19:35 Core Measures - Anticipated LOS I expect patient to be DC'd or transferred within 96 hours.: Yes - DVT/VTE - Prophylaxis VTE/DVT Device ordered at admit?: Yes VTE/DVT Prophylaxis med ordered at admit?: Yes
[2019-01-10] MEDS: NS W/20 MEQ KCL 1,000 ML IV SCH ×3 (00:28→21:31)
[2019-01-10] MEDS: SODIUM CHLORIDE FLUSH 0.9% 10 ML SYRINGE IVP SCH ×3 (05:16→16:43)
[2019-01-10] MEDS: SODIUM CHLORIDE FLUSH 0.9% 10 ML SYRINGE IVP PRN ×2 (05:16→06:22)
[2019-01-10] MEDS: CEFEPIME 2 GM in SODIUM CHLORIDE 0.9% MINIBAG 100 ML IV SCH ×3 (05:28→21:32)
[2019-01-10 05:51] LABS: BASOPHILS % (AUTO) 0.5 %; CALCIUM 7.8 mg/dL (8.5-10.3); CREATININE 0.5 mg/dL (0.4-1.0); EOSINOPHILS % (AUTO) 0.6 %; HGB - HEMOGLOBIN 11.3 g/dL (12.0-16.0); LYMPHOCYTES % (AUTO) 60.8 %; MEAN CORPUSCULAR HEMOGLOBIN 28.7 pg (27.0-31.0); MEAN CORPUSCULAR HGB CONC 34.1 g/dL (32.0-36.0); MEAN CORPUSCULAR VOLUME 84.2 fL (81.0-99.0); MEAN PLATELET VOLUME 8.7 fL (7.9-10.8); MONOCYTES % (AUTO) 32.8 %; NEUTROPHILS % (AUTO) 5.3 %; PLT - PLATELET COUNT 139 10^3/uL (130-450); RED BLOOD COUNT 3.93 10^6/uL (4.20-5.40); RED CELL DISTRIBUTION WIDTH 12.3 % (12.0-15.0)
[2019-01-10] MEDS: ONDANSETRON 4 MG/2 ML VIAL IVP PRN ×2 (06:22→16:43)
[2019-01-10] MEDS ORDERED: ONDANSETRON 4 MG/2 ML VIAL ONE (06:24)
[2019-01-10 06:46] LABS: WHITE BLOOD COUNT 0.7 x10^3/uL (4.8-10.8)
[2019-01-10 06:47] LABS: ABNORMAL LYMPHS % (MANUAL) 0 %; BAND NEUTROPHILS % (MANUAL) 0 %
[2019-01-10 06:51] LABS: DIFFERENTIAL COMMENT MANUAL DIFFERENTIAL; LYMPHOCYTES # (MANUAL) 0.6 10^3/uL (1.5-3.5); LYMPHOCYTES % (MANUAL) 88 %; MONOCYTES # (MANUAL) 0.1 10^3/uL (0.0-1.0); NEUTROPHILS % (MANUAL) 2 %; PLATELET ESTIMATE, MANUAL NORMAL (130-450,000) (NORMAL); RBC MORPHOLOGY (MULTIPLE) NORMAL APPEARANCE (NORMAL)
[2019-01-10] MEDS: POLYETHYLENE GLYCOL 3350 17 GM PACKET PO SCH (09:26)
[2019-01-10] MEDS ORDERED: LORazepam 0.5 MG TABLET PO PRN (10:25)
--- NOTE | 2019-01-10 10:29 | PROVIDER PROGRESS NOTE ---
Subjective - Prog Note Date Prog Note Date: 01/10/19 Prog Note Time: 10:26 - Subjective Pt reports feeling: Improved Subjective: Rosa states that her appetite continues to be an issue, and wishes to be a DNR after speaking with her . She denies chest pain, vomiting, diarrhea, a rash, dizziness, or shortness of breath. Current Medications - Current Medications Current Medications: Active Medications Acetaminophen (Tylenol) 650 mg PO Q4HR PRN PRN Reason: Pain 1 to 4 Last Admin: 01/10/19 10:48 Dose: 650 mg Enoxaparin Sodium (Lovenox) 40 mg SUBQ DAILY [facility] Last Admin: 01/10/19 11:07 Dose: 40 mg Escitalopram Oxalate (Lexapro) 10 mg PO DAILY [facility] Last Admin: 01/10/19 10:48 Dose: 10 mg Filgrastim (Zarxio) 300 mcg SUBQ DAILY [facility] Stop: 01/13/19 10:59 Last Admin: 01/10/19 11:07 Dose: 300 mcg Cefepime HCl 2 gm/ Sodium (Chloride) 100 mls @ 200 mls/hr IV Q8H [facility] Last Infusion: 01/10/19 14:21 Dose: Infused Promethazine HCl 12.5 mg/ (Sodium Chloride) 50.5 mls @ 100 mls/hr IV Q6H PRN PRN Reason: Nausea / Vomiting Potassium Chloride/Sodium Chloride (Normal Saline 0.9% W/20 Meq Kcl) 1,000 mls @ 100 mls/hr IV .Q10H [facility] Last Admin: 01/10/19 10:01 Dose: 100 mls/hr Vancomycin HCl 1 gm/Vancomycin HCl 250 mg/ Sodium Chloride 275 mls @ 184 mls/hr IV Q12H [facility] Lorazepam (Ativan) 0.5 mg PO Q6H PRN PRN Reason: Nausea / Vomiting Ondansetron HCl (Zofran Inj) 4 mg IVP Q6HR PRN PRN Reason: Nausea / Vomiting Last Admin: 01/10/19 16:43 Dose: 4 mg Patient Own Med ( Cannabidiol (Cbd) Extract [Epidiolex]) 1 - 2 each SL PRN PRN PRN Reason: appetite stimulation Polyethylene Glycol (Miralax) 17 gm PO DAILY [facility] Last Admin: 01/10/19 09:26 Dose: 17 gm Sodium Chloride (Normal Saline Flush 0.9%) 10 ml IVP PRN PRN PRN Reason: NEEDED PER PROVIDER ORDERS Last Admin: 01/10/19 06:22 Dose: 10 ml Sodium Chloride (Normal Saline Flush 0.9%) 10 ml IVP 0100,0900,1700 MICAH Last Admin: 01/10/19 16:43 Dose: 10 ml LORazepam [Lorazepam] 0.5 mg PO Q6H PRN 01/08/19 Prochlorperazine Maleate [Compazine] 10 mg PO Q6H PRN 01/08/19 Acetaminophen [Tylenol] 650 mg PO Q4HR PRN 01/09/19 Cannabidiol (Cbd) Extract [Epidiolex] 1 - 2 drops SL PRN PRN 01/09/19 Escitalopram [Lexapro] 10 mg PO DAILY 01/09/19 Loperamide [Imodium] 2 mg PO DAILY PRN 01/09/19 Polyethylene Glycol 3350 [Miralax] 17 gm PO DAILY PRN 01/09/19 B Complex with Vitamin C [B-Complex Plus Vitamin C] 1 tab PO DAILY 01/10/19 Cholecalciferol [Vitamin D3] 5,000 unit PO DAILY 01/10/19 Lidocaine/Prilocaine [Lidocaine-Prilocaine Cream] 1 applic TOP PRN PRN 01/10/19 Objective - Vital Signs/Intake & Output Reviewed Vital Signs: Yes Vital Signs: Vital Signs x48h Temp Pulse Resp BP Pulse Ox 01/10/19 07:36 37.4 C 77 16 124/65 97 01/10/19 05:15 37.2 C 01/10/19 04:00 37.5 C 87 18 139/75 H 96 Intake & Output: Intake & Output 01/07/19 01/08/19 01/09/19 01/10/19 23:59 23:59 23:59 23:59 Intake Total 1610 1335 Output Total 300 Balance 1310 1335 - Objective General Appearance: positive: Alert, Moderate distress, Anxious, Lethargic Eyes Bilateral: positive: PERRL Eyes: OU Conjunctivae pale ENT: positive: Pharynx nml, Dry mucous membranes Neck: positive: Thyroid nml, No JVD, Trachea midline, Lymphadenopathy (R), Lymphadenopathy (L) Respiratory: positive: Chest non-tender, No respiratory distress, Breath sounds nml, Other (diminished) Cardiovascular: positive: Regular rate & rhythm, No murmur, No gallop Peripheral Pulses: 1+ Radial (R), 1+ Radial (L) Abdomen: positive: Nml bowel sounds, Tenderness, Guarding Back: positive: Nml inspection Skin: positive: No rash, Warm, Dry Extremities: positive: Non-tender, Full ROM, Nml appearance, No pedal edema Neurologic/Psychiatric: positive: Oriented x3, CN's nml (2-12), Motor nml, Se nsation nml, Depressed mood/affect Reflexes: Bicep (R): 3+, Bicep (L): 3+ - Lab Results Fish Bones: 01/11/19 05:55 01/11/19 05:55 Other Labs: Lab Results x24hrs 01/10/19 01/10/19 01/09/19 Range/Units 05:20 05:20 19:40 WBC 0.7 L* (4.8-10.8) x10^3/uL RBC 3.93 L (4.20-5.40) 10^6/uL Hgb 11.3 L (12.0-16.0) g/dL Hct 33.1 L (37.0-47.0) % MCV 84.2 (81.0-99.0) fL MCH 28.7 (27.0-31.0) pg MCHC 34.1 (32.0-36.0) g/dL RDW 12.3 (12.0-15.0) % Plt Count 139 (130-450) 10^3/uL MPV 8.7 (7.9-10.8) fL Neut # (Auto) Not Reportable Lymph # (Auto) Not Reportable [place] # (Auto) Not Reportable Eos # (Auto) Not Reportable Baso # (Auto) Not Reportable Absolute Nucleated RBC Not Reportable Total Counted 50 Band Neuts % (Manual) 0 (0 - 10) % Reactive Lymphs % (Man) % Abnorm Lymph % (Manual) 0 % Nucleated RBC % Not Reportable Neutrophils # (Manual) 0.0 L* (1.5-6.6) 10^3/uL Lymphocytes # (Manual) 0.6 L (1.5-3.5) 10^3/uL Monocytes # (Manual) 0.1 (0.0-1.0) 10^3/uL Eosinophils # (Manual) 0.0 (0-0.7) 10^3/uL Basophils # (Manual) 0.0 (0-0.1) 10^3/uL Differential Comment MANUAL DIFFERENTIAL Manual Slide Review Platelet Estimate NORMAL (130-450,000) (NORMAL) Platelet Morphology (NORMAL) RBC Morph Micro Appear NORMAL APPEARANCE (NORMAL) Sodium 133 L (135-145) mmol/L Potassium 3.7 (3.5-5.0) mmol/L Chloride 101 (101-111) mmol/L Carbon Dioxide 26 (21-32) mmol/L Anion Gap 6.0 (6-13) BUN 10 (6-20) mg/dL Creatinine 0.5 (0.4-1.0) mg/dL Estimated GFR (MDRD) 126 (>89) Glucose 112 H (70-100) mg/dL Lactic Acid (0.5-2.2) mmol/L Calcium 7.8 L (8.5-10.3) mg/dL Total Bilirubin (0.2-1.0) mg/dL AST (10-42) IU/L ALT (10-60) IU/L Alkaline Phosphatase (42-121) IU/L Total Protein (6.7-8.2) g/dL Albumin (3.2-5.5) g/dL Globulin (2.1-4.2) g/dL Albumin/Globulin Ratio (1.0-2.2) Lipase (22-51) U/L Urine Color Urine Clarity (CLEAR) Urine pH (5.0-7.5) PH Ur Specific [place] (1.002-1.030) Urine Protein (NEGATIVE) mg/dL Urine Glucose (UA) (NEGATIVE) mg/dL Urine Ketones (NEGATIVE) mg/dL Urine Occult Blood (NEGATIVE) Urine Nitrite (NEGATIVE) Urine Bilirubin (NEGATIVE) Urine Urobilinogen (NORMAL) E.U./dL Ur Leukocyte Esterase (NEGATIVE) Ur Microscopic Review Urine Culture Comments Influenza A (Rapid) Negative (Negative) Influenza B (Rapid) Negative (Negative) 01/09/19 01/09/19 01/09/19 Range/Units 19:35 19:35 19:35 WBC 0.6 L* (4.8-10.8) x10^3/uL RBC 4.25 (4.20-5.40) 10^6/uL Hgb 12.1 (12.0-16.0) g/dL Hct 35.9 L (37.0-47.0) % MCV 84.5 (81.0-99.0) fL MCH 28.4 (27.0-31.0) pg MCHC 33.7 (32.0-36.0) g/dL RDW 12.2 (12.0-15.0) % Plt Count 146 (130-450) 10^3/uL MPV 8.8 (7.9-10.8) fL Neut # (Auto) Not Reportable Lymph # (Auto) Not Reportable [place] # (Auto) Not Reportable Eos # (Auto) Not Reportable Baso # (Auto) Not Reportable Absolute Nucleated RBC Not Reportable Total Counted 50 Band Neuts % (Manual) 0 (0 - 10) % Reactive Lymphs % (Man) 10 % Abnorm Lymph % (Manual) 0 % Nucleated RBC % Not Reportable Neutrophils # (Manual) 0.0 L* (1.5-6.6) 10^3/uL Lymphocytes # (Manual) 0.5 L (1.5-3.5) 10^3/uL Monocytes # (Manual) 0.1 (0.0-1.0) 10^3/uL Eosinophils # (Manual) 0.0 (0-0.7) 10^3/uL Basophils # (Manual) 0.0 (0-0.1) 10^3/uL Differential Comment MANUAL DIFFERENTIAL Manual Slide Review Indicated Platelet Estimate NORMAL (130-450,000) (NORMAL) Platelet Morphology NORMAL APPEARANCE (NORMAL) RBC Morph Micro Appear NORMAL APPEARANCE (NORMAL) Sodium 134 L (135-145) mmol/L Potassium 3.6 (3.5-5.0) mmol/L Chloride 98 L (101-111) mmol/L Carbon Dioxide 27 (21-32) mmol/L Anion Gap 9.0 (6-13) BUN 17 (6-20) mg/dL Creatinine 0.7 (0.4-1.0) mg/dL Estimated GFR (MDRD) 86 L (>89) Glucose 131 H (70-100) mg/dL Lactic Acid 1.2 (0.5-2.2) mmol/L Calcium 8.7 (8.5-10.3) mg/dL Total Bilirubin 0.5 (0.2-1.0) mg/dL AST 35 (10-42) IU/L ALT 45 (10-60) IU/L Alkaline Phosphatase 59 (42-121) IU/L Total Protein 6.2 L (6.7-8.2) g/dL Albumin 3.6 (3.2-5.5) g/dL Globulin 2.6 (2.1-4.2) g/dL Albumin/Globulin Ratio 1.4 (1.0-2.2) Lipase 28 (22-51) U/L Urine Color Urine Clarity (CLEAR) Urine pH (5.0-7.5) PH Ur Specific [place] (1.002-1.030) Urine Protein (NEGATIVE) mg/dL Urine Glucose (UA) (NEGATIVE) mg/dL Urine Ketones (NEGATIVE) mg/dL Urine Occult Blood (NEGATIVE) Urine Nitrite (NEGATIVE) Urine Bilirubin (NEGATIVE) Urine Urobilinogen (NORMAL) E.U./dL Ur Leukocyte Esterase (NEGATIVE) Ur Microscopic Review Urine Culture Comments Influenza A (Rapid) (Negative) Influenza B (Rapid) (Negative) 01/09/19 Range/Units 19:27 WBC (4.8-10.8) x10^3/uL RBC (4.20-5.40) 10^6/uL Hgb (12.0-16.0) g/dL Hct (37.0-47.0) % MCV (81.0-99.0) fL MCH (27.0-31.0) pg MCHC (32.0-36.0) g/dL RDW (12.0-15.0) % Plt Count (130-450) 10^3/uL MPV (7.9-10.8) fL Neut # (Auto) Lymph # (Auto) [place] # (Auto) Eos # (Auto) Baso # (Auto) Absolute Nucleated RBC Total Counted Band Neuts % (Manual) (0 - 10) % Reactive Lymphs % (Man) % Abnorm Lymph % (Manual) % Nucleated RBC % Neutrophils # (Manual) (1.5-6.6) 10^3/uL Lymphocytes # (Manual) (1.5-3.5) 10^3/uL Monocytes # (Manual) (0.0-1.0) 10^3/uL Eosinophils # (Manual) (0-0.7) 10^3/uL Basophils # (Manual) (0-0.1) 10^3/uL Differential Comment Manual Slide Review Platelet Estimate (NORMAL) Platelet Morphology (NORMAL) RBC Morph Micro Appear (NORMAL) Sodium (135-145) mmol/L Potassium (3.5-5.0) mmol/L Chloride (101-111) mmol/L Carbon Dioxide (21-32) mmol/L Anion Gap (6-13) BUN (6-20) mg/dL Creatinine (0.4-1.0) mg/dL Estimated GFR (MDRD) (>89) Glucose (70-100) mg/dL Lactic Acid (0.5-2.2) mmol/L Calcium (8.5-10.3) mg/dL Total Bilirubin (0.2-1.0) mg/dL AST (10-42) IU/L ALT (10-60) IU/L Alkaline Phosphatase (42-121) IU/L Total Protein (6.7-8.2) g/dL Albumin (3.2-5.5) g/dL Globulin (2.1-4.2) g/dL Albumin/Globulin Ratio (1.0-2.2) Lipase (22-51) U/L Urine Color YELLOW Urine Clarity CLEAR (CLEAR) Urine pH 5.5 (5.0-7.5) PH Ur Specific [place] 1.020 (1.002-1.030) Urine Protein NEGATIVE (NEGATIVE) mg/dL Urine Glucose (UA) 100 H (NEGATIVE) mg/dL Urine Ketones NEGATIVE (NEGATIVE) mg/dL Urine Occult Blood TRACE-LYSE (NEGATIVE) Urine Nitrite NEGATIVE (NEGATIVE) Urine Bilirubin NEGATIVE (NEGATIVE) Urine Urobilinogen 0.2 (NORMAL) (NORMAL) E.U./dL Ur Leukocyte Esterase NEGATIVE (NEGATIVE) Ur Microscopic Review NOT INDICATED Urine Culture Comments NOT INDICATED Influenza A (Rapid) (Negative) Influenza B (Rapid) (Negative) ABX Reporting Has patient been on IV antibiotics over the past 48 hours?: Yes Sepsis Event Note (H) - Evaluation Current Stage of Sepsis: Ruled out - Sepsis Criteria Sepsis Criteria: Suspected or Documented, Recorded Temperature greater than 38 .3C or Less than 36C Assessment/Plan - Problem List (1) Neutropenic fever Impression: Blood cultures drawn Patient started on vancomycin and cefepime. Will continue. On neutropenic precaution and a neutropenic diet Tylenol for fever Start Neupogen 300 mcg daily Await cultures (2) Infiltrating ductal carcinoma of breast Impression: [place] [facility] [place] 01/01/19. 1 of 6 cycles. Taxotere given Herceptin weekly. Second dose 01/08/19 [facility] was spoken to and will be making a social visit today Qualifiers: Laterality: left Qualified Code(s): C50.912 - Malignant neoplasm of unspecified site of left female breast (3) Anorexia Impression: per [facility], the patient has been struggling with her poor appetite. Patient take CBD oils at home to stimulate appetite Plan: Nutritional consult, encourage PO intake. (4) Anxiety Impression: The patient appears to be "on the edge of her seat" during exam Anxiety may be surrounded by recent cancer dx Plan: Continue antidepressant
[2019-01-10] MEDS: ESCITALOPRAM 10 MG TABLET PO SCH (10:48)
[2019-01-10] MEDS: ACETAMINOPHEN 325 MG TABLET PO PRN ×2 (10:48→20:26)
[2019-01-10] MEDS ORDERED: VANCOMYCIN INJ 0.75 GM in SODIUM CHLORIDE 0.9% 250 ML IV SCH (11:00)
[2019-01-10] MEDS ORDERED: VANCOMYCIN INJ 1 GM, VANCOMYCIN INJ 250 MG in SODIUM CHLORIDE 0.9% 250 ML IV SCH ×10 (11:00→14:19)
[2019-01-10] MEDS: FILGRASTIM-SNDZ 300 MCG/0.5 ML SYRINGE SUBQ SCH (11:07)
[2019-01-10] MEDS: ENOXAPARIN 40 MG/0.4 ML SYRINGE SUBQ SCH (11:07)
[2019-01-10] MEDS ORDERED: CANNABIDIOL SL PRN (15:02)
[2019-01-11] MEDS: SODIUM CHLORIDE FLUSH 0.9% 10 ML SYRINGE IVP SCH ×2 (00:44→08:57)
[2019-01-11 06:13] LABS: BASOPHILS % (AUTO) 0.6 %; CALCIUM 7.9 mg/dL (8.5-10.3); CREATININE 0.6 mg/dL (0.4-1.0); EOSINOPHILS % (AUTO) 0.2 %; HGB - HEMOGLOBIN 11.2 g/dL (12.0-16.0); LYMPHOCYTES % (AUTO) 42.1 %; MEAN CORPUSCULAR HEMOGLOBIN 29.1 pg (27.0-31.0); MEAN CORPUSCULAR HGB CONC 33.8 g/dL (32.0-36.0); MEAN CORPUSCULAR VOLUME 86.1 fL (81.0-99.0); MEAN PLATELET VOLUME 8.8 fL (7.9-10.8); MONOCYTES % (AUTO) 35.1 %; PLT - PLATELET COUNT 133 10^3/uL (130-450); RED BLOOD COUNT 3.84 10^6/uL (4.20-5.40); RED CELL DISTRIBUTION WIDTH 12.4 % (12.0-15.0); WHITE BLOOD COUNT 2.1 x10^3/uL (4.8-10.8)
[2019-01-11 06:55] LABS: BAND NEUTROPHILS % (MANUAL) 12 %; LYMPHOCYTES % (MANUAL) 40 %; MONOCYTES # (MANUAL) 0.6 10^3/uL (0.0-1.0); NEUTROPHILS % (MANUAL) 10 %
[2019-01-11 06:57] LABS: ABNORMAL LYMPHS % (MANUAL) 10 %; LYMPHOCYTES # (MANUAL) 1.1 10^3/uL (1.5-3.5); NEUTROPHILS # (MANUAL) 0.5 10^3/uL (1.5-6.6)
[2019-01-11 06:58] LABS: PLATELET ESTIMATE, MANUAL DECREASED (<130,000) (NORMAL)
[2019-01-11 07:52] VITALS: BP 117/57
[2019-01-11] MEDS: CEFEPIME 2 GM in SODIUM CHLORIDE 0.9% MINIBAG 100 ML IV SCH (07:57)
[2019-01-11] MEDS: ACETAMINOPHEN 325 MG TABLET PO PRN (08:01)
[2019-01-11] MEDS: NS W/20 MEQ KCL 1,000 ML IV SCH (08:56)
[2019-01-11] MEDS: ENOXAPARIN 40 MG/0.4 ML SYRINGE SUBQ SCH (08:56)
[2019-01-11] MEDS: ESCITALOPRAM 10 MG TABLET PO SCH (08:56)
[2019-01-11] MEDS: POLYETHYLENE GLYCOL 3350 17 GM PACKET PO SCH (08:57)
[2019-01-11] MEDS: FILGRASTIM-SNDZ 300 MCG/0.5 ML SYRINGE SUBQ SCH (10:29)
--- NOTE | 2019-01-11 10:56 | Discharge Plan ---
Discharge Plan Disposition: 01 Home, Self Care Condition: Good Prescriptions: Clindamycin HCl [Clindamycin 300MG CAP] 300 mg PO QID #20 capsule Diet: Regular Activity Restrictions: Activity as Tolerated Shower Restrictions: No Driving Restrictions: No Additional Instructions or Follow Up instructions: You were admitted for a neutropenic fever and given IV antibiotics. You should continue oral antibiotics for the next few days and see oncology next week. You were given 2 doses of Neupogen, (hematopoietic growth factor) which helped to increased your white blood cell count from 0 to 2.0 today. Please keep hydrated and eat a balanced diet. I will personally call you if your cultures come back with growth. Blood cultures are still pending. Please see your PCP within one week. No Smoking: If you smoke, Please STOP! Call for help. Follow-up with: Marquise Steele MD [Primary Care Provider] -
--- NOTE | 2019-01-11 12:40 | DISCHARGE SUMMARY ---
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 Rogers: Patient is a 58 y/o female who presented to the ED with complain of fever and chills which started today. She had a temperature of 101 F. She reports aching all over and feeling tired. She had 3 episodes of diarrhea 2 days ago for which she took immodium and has not had any bowel movement since. She reports abdominal cramps. She also reported nausea and vomiting. She denied chest pain or ISIAH. She has left infiltrating ductal carcinoma (ER+ AK- HER2+) for which she sees Dr Victoria. She started the first of six cycles of chemotherapy on 01/01/19. She received taxotere. She also gets weekly herceptin. and had her second dose on 01/08/19. Work up in the ED showed a WBC of 0.6 and ANC of 0.0. As a result she is being admitted for further treatment. - CONSULTS | PROCEDURES Consultations: Oncology-Yue Martinez - HOSPITAL COURSE Hospital Course: The patient was treated with Cefepime and Vanco IV, which was changed to 5 more days of Clindamycin. Blood cultures remained negative. A sputum sample was not obtained. The urine sample showed no evidence of acute infection. She was given 2 doses of daily Neupogen with an improvement in her WBC count from 0 to 2.0. She appeared well on exam prior to discharge, did not require oxygen, and was tolerating meals. Her was at the bedside for her final exam. She was was provided teaching using handouts on Lovenox for DVT prophylaxis, Neupogen, and neutropenic fevers. - ALLERGIES Allergies/Adverse Reactions: Allergies Allergy/AdvReac Type Severity Reaction Status Date / Time camphor [From Biofreeze] Allergy Unknown Verified 01/09/19 19:51 capsaicin Allergy Unknown Verified 01/09/19 19:51 [From Salonpas (capsaicin/menthol)] meloxicam Allergy Hives Verified 01/09/19 19:51 menthol [From Biofreeze] Allergy Unknown Verified 01/09/19 19:51 Penicillins Allergy Hives Verified 01/09/19 19:51 - MEDICATIONS Home Medications: Ambulatory Orders Medication Instructions Recorded Confirmed Dexamethasone 8 mg PO BID 3 Days #12 tablet 12/28/18 01/10/19 LORazepam [Lorazepam] 0.5 mg PO Q6H PRN 01/08/19 01/10/19 Ondansetron HCl [Zofran] 4 mg PO Q4H PRN #30 tablet 01/08/19 01/10/19 Prochlorperazine Maleate 10 mg PO Q6H PRN 01/08/19 01/10/19 [Compazine] Acetaminophen [Tylenol] 650 mg PO Q4HR PRN 01/09/19 01/10/19 Cannabidiol (Cbd) Extract 1 - 2 drops SL PRN PRN 01/09/19 01/10/19 [Epidiolex] Escitalopram [Lexapro] 10 mg PO DAILY 01/09/19 01/10/19 Loperamide [Imodium] 2 mg PO DAILY PRN 01/09/19 01/10/19 Polyethylene Glycol 3350 [Miralax] 17 gm PO DAILY PRN 01/09/19 01/10/19 B Complex with Vitamin C 1 tab PO DAILY 01/10/19 01/10/19 [B-Complex Plus Vitamin C] Cholecalciferol [Vitamin D3] 5,000 unit PO DAILY 01/10/19 01/10/19 Lidocaine/Prilocaine 1 applic TOP PRN PRN 01/10/19 01/10/19 [Lidocaine-Prilocaine Cream] Clindamycin HCl [Clindamycin 300MG 300 mg PO QID #20 capsule 01/11/19 CAP] - PHYSICAL EXAM AT DISCHARGE General Appearance: positive: No acute distress, Alert Eyes Bilateral: positive: Normal inspection, PERRL ENT: positive: Pharynx nml, No signs of dehydration Neck: positive: Thyroid nml, No JVD, Trachea midline Respiratory: positive: Chest non-tender, No respiratory distress, Breath sounds nml Cardiovascular: positive: Regular rate & rhythm, No murmur, No gallop Peripheral Pulses: positive: 2+ Abdomen: positive: Non-tender, No organomegaly, Nml bowel sounds, No distention Back: positive: Nml inspection Skin: positive: No rash, Warm, Dry, Pallor Extremities: positive: Non-tender, Full ROM, Nml appearance, No pedal edema Neurologic/Psychiatric: positive: Oriented x3, CN's nml (2-12), Motor nml, Sensation nml, Weakness, Depressed mood/affect Reflexes: Bicep (R): 3+, Bicep (L): 3+ - LABS Result Diagrams: 01/11/19 05:55 01/11/19 05:55 - DIAGNOSTIC IMAGING Diagnostic Imaging Results: Final report reviewed - SEPSIS Current Stage of Sepsis: Ruled out Confirmed Source and Organism (if known) of Sepsis: EXAM: CHEST RADIOGRAPHY EXAM DATE: 01/09/2019 07:59 PM. FINDINGS: Lungs/Pleura: No focal opacities evident. No pleural effusion. No pneumothorax. Mediastinum: Within exam limitations, the cardiomediastinal contour is normal. Other: Right Port-A-Cath central line with the tip at the distal superior vena cava. Multiple surgical clips at the left breast and axillary region. IMPRESSION: No acute cardiopulmonary disease seen. Sepsis Criteria: Suspected or Documented, Recorded Temperature greater than 38.3C or Less than 36C - FOLLOW UP Follow Up: Disposition: Home, Self Care Prescriptions: Clindamycin HCl [Clindamycin 300MG CAP] 300 mg PO QID #20 capsule Additional Instructions or Follow Up instructions: You were admitted for a neutropenic fever and given IV antibiotics. You should continue oral antibiotics for the next few days and see oncology next week. You were given 2 doses of Neupogen, (hematopoietic growth factor) which helped to increased your white blood cell count from 0 to 2.0 today. Please keep hydrated and eat a balanced diet. I will personally call you if your cultures come back with growth. Blood cultures are still pending. Please see your PCP within one week. - TIME SPENT Time Spent in Discharge (Minutes): 60"
[2019-01-11] MEDS ORDERED: VANCOMYCIN INJ 1 GM, VANCOMYCIN INJ 250 MG in SODIUM CHLORIDE 0.9% 250 ML IV SCH (23:00)
== END 2019-01-11 11:40 | disposition home or self-care (01) | DRG 809 ==
LOC: ED 19:06 → MS2 22:18
PROVIDERS: ADMIT Internal Medicine; ATTEND Nurse Practitioner
DX: D70.1 Agranulocytosis secondary to cancer chemotherapy (principal); Z68.1 Body mass index [BMI] 19.9 or less, adult; R50.81 Fever presenting with conditions classified elsewhere; C50.912 Malignant neoplasm of unspecified site of left female breast; Z17.0 Estrogen receptor positive status [ER+]; F41.9 Anxiety disorder, unspecified; F32.9 Major depressive disorder, single episode, unspecified; D64.81 Anemia due to antineoplastic chemotherapy; T45.1X5A Adverse effect of antineoplastic and immunosuppressive drugs, initial encounter; R63.0 Anorexia; E89.2 Postprocedural hypoparathyroidism; G47.00 Insomnia, unspecified; Z66 Do not resuscitate; Y92.531 Health care provider office as the place of occurrence of the external cause; Z79.52 Long term (current) use of systemic steroids; Z90.12 Acquired absence of left breast and nipple; Z79.891 Long term (current) use of opiate analgesic
CPT/HCPCS: 36415; 71045; 80048; 80053; 81001; 81003; 83605; 83690; 85025; 87040; 87086; 87275; 87276; 96365; 96366; 96367; 99284; 99285

== ENCOUNTER 2019-01-13 12:36 | Emergency (ER) | payer OTHER ==
--- NOTE | 2019-01-13 12:54 | ED Physician Documentation ---
PD HPI WOUND RECHECK - Stated complaint Stated Complaint: POST OP COMPLICATIONS - Chief complaint Chief Complaint: Wound - Histroy obtained from History obtained from: Patient - History of Present Illness Location: Left Uppper Extremity (anterior axilla at lymph node biopsy site.) Timing - onset: Yesterday (they noted some redness at the axillary site yesterday and it increased into today. The area has been tender since the procedure, with some swelling locally. She says he surgeon presumed hematoma or such and did not want to open it, for concern of creating infection.) Associated symptoms: Fever (several days ago when neutropenic and was in hospital without identified source of infection. Cultures negative. Discharged on Clindamycin empirically without source per se. She says she has had nausea and upset stomach when taking the Clinda. Now with redness at the axillary site of lymph node biopsy (was not red there when hospitalized).) Recently seen: Emergency Dept, Admitted (for neutropenic fever.) Review of Systems Constitutional: denies: Fever Nose: denies: Rhinorrhea / runny nose, Congestion Throat: denies: Sore throat Cardiac: denies: Chest pain / pressure Respiratory: denies: Cough GI: denies: Abdominal Pain, Nausea, Vomiting : denies: Dysuria Skin: reports: Rash (just the redness developing at axillary site) PD PAST MEDICAL HISTORY - Past Medical History Cardiovascular: None Respiratory: None Neuro: None Endocrine/Autoimmune: Other GI: None 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 HEENT: Other Psych: Anxiety Musculoskeletal: None Derm: None - Past Surgical History Past Surgical History: Yes General: Other - Present Medications Home Medications: Ambulatory Orders Medication Instructions Recorded Confirmed Dexamethasone 8 mg PO BID 3 Days #12 tablet 12/28/18 01/10/19 LORazepam [Lorazepam] 0.5 mg PO Q6H PRN 01/08/19 01/10/19 Ondansetron HCl [Zofran] 4 mg PO Q4H PRN #30 tablet 01/08/19 01/10/19 Prochlorperazine Maleate 10 mg PO Q6H PRN 01/08/19 01/10/19 [Compazine] Acetaminophen [Tylenol] 650 mg PO Q4HR PRN 01/09/19 01/10/19 Cannabidiol (Cbd) Extract 1 - 2 drops SL PRN PRN 01/09/19 01/10/19 [Epidiolex] Escitalopram [Lexapro] 10 mg PO DAILY 01/09/19 01/10/19 Loperamide [Imodium] 2 mg PO DAILY PRN 01/09/19 01/10/19 Polyethylene Glycol 3350 [Miralax] 17 gm PO DAILY PRN 01/09/19 01/10/19 B Complex with Vitamin C 1 tab PO DAILY 01/10/19 01/10/19 [B-Complex Plus Vitamin C] Cholecalciferol [Vitamin D3] 5,000 unit PO DAILY 01/10/19 01/10/19 Lidocaine/Prilocaine 1 applic TOP PRN PRN 01/10/19 01/10/19 [Lidocaine-Prilocaine Cream] Clindamycin HCl [Clindamycin 300MG 300 mg PO QID #20 capsule 01/11/19 CAP] Sulfamethox/Trimeth 800/160 1 each PO BID #14 tablet 01/13/19 [Bactrim Ds 800/160] - Allergies Allergies/Adverse Reactions: Allergies Allergy/AdvReac Type Severity Reaction Status Date / Time camphor [From Biofreeze] Allergy Unknown Verified 01/13/19 12:43 capsaicin Allergy Unknown Verified 01/13/19 12:43 [From Salonpas (capsaicin/menthol)] meloxicam Allergy Hives Verified 01/13/19 12:43 menthol [From Biofreeze] Allergy Unknown Verified 01/13/19 12:43 Penicillins Allergy Hives Verified 01/13/19 12:43 - Social History Does the pt smoke?: No Smoking Status: Never smoker Does the pt drink ETOH?: Yes Does the pt have substance abuse?: No - Immunizations Immunizations are current?: Yes - POLST Patient has POLST: Yes POLST Status: Full Code PD ED PE NORMAL - Vitals Vital signs reviewed: Yes - General General: Alert and oriented X 3, No acute distress, Well developed/nourished - Neck Neck: Supple, no meningeal sign, No adenopathy - Cardiac Cardiac: RRR, No murmur - Respiratory Respiratory: Clear bilaterally - Abdomen Abdomen: Soft, Non tender - Derm Derm: Other (left axillary area with healing surgical wound with local swelling and noted to be fluid collection with bedside U/S. There is redness around the area about 2 cm diameter. No drainage. No sores. ) Results - Vitals Vitals: Vital Signs - 24 hr 01/13/19 01/13/19 01/13/19 12:41 14:51 15:50 Temperature 37.0 C 36.1 C L 36.1 C L Heart Rate 73 71 65 Respiratory 18 16 18 Rate Blood Pressure 139/67 H 123/70 122/76 O2 Saturation 100 100 98 Oxygen O2 Source Room air - Labs Labs: Microbiology 01/13/19 14:15 Wound Culture - Preliminary Abscess Laboratory Tests 01/13/19 01/13/19 13:50 13:50 WBC 10.6 RBC 3.87 L Hgb 11.3 L Hct 32.6 L MCV 84.3 MCH 29.2 MCHC 34.6 RDW 13.0 Plt Count 126 L MPV 8.1 Neut # (Auto) Not Reportable Lymph # (Auto) Not Reportable Stanton # (Auto) Not Reportable Eos # (Auto) Not Reportable Baso # (Auto) Not Reportable Absolute Nucleated RBC Not Reportable Total Counted 100 Band Neuts % (Manual) 17 H Abnorm Lymph % (Manual) 0 Metamyelocytes % 2 H Myelocytes % 1 H Nucleated RBC % Not Reportable Neutrophils # (Manual) 7.2 H Lymphocytes # (Manual) 1.9 Monocytes # (Manual) 1.2 H Eosinophils # (Manual) 0.0 Basophils # (Manual) 0.0 Differential Comment MANUAL DIFFERENTIAL Platelet Estimate NORMAL (130-450,000) Platelet Morphology NORMAL APPEARANCE Sodium 135 Potassium 3.8 Chloride 98 L Carbon Dioxide 28 Anion Gap 9.0 BUN 13 Creatinine 0.6 Estimated GFR (MDRD) 102 Glucose 151 H Calcium 8.7 Procedures - Abscess I&D (location) left axillary surgical site Preparation: Confirmed with ultrasound, Lidocaine 1%, With epi Incision: Needle aspiration (obtained 2-3 ml of clear yellow fluid c/w seroma.), Culture obtained. No: Purulent drainage Other: Pt tolerated well, Dressing applied, Antibiotic prescribed PD MEDICAL DECISION MAKING - ED course Complexity details: reviewed results (not neutropenic. Fluid aspirate is clear c/w seroma. Could be early infection of it, but more c/w cellulitis. Still most likely to be staph, give occurring at site of surgical procedure and in site of seroma. Will change from Clinda to Bactrim and gave dose of Vanco here. ), d/w senior research consultant (talked with information assurance officer Oncologist at requst of the patient/, and reviewed findings with him. He agrees with treatment plan. ) Departure - Departure Disposition: 01 Home, Self Care Clinical Impression: Seroma infection, postoperative Condition: Stable Record reviewed to determine appropriate education?: Yes Instructions: ED Infec Skin Cellulitis Prescriptions: Sulfamethox/Trimeth 800/160 [Bactrim Ds 800/160] 1 each PO BID #14 tablet Comments: You can stop the clindamycin you had previously been prescribed. And an infection of a seroma like this is typically going to be a staph infection and so we would treated more targeted with Bactrim antibiotic twice daily for a week. Follow-up this coming week as scheduled. He can use some warm towels or compresses to the area to improve blood flow to 3 times a day. Otherwise usual medications. Discharge Date/Time: 01/13/19 16:03
[2019-01-13] MEDS ORDERED: VANCOMYCIN INJ 1 GM in SODIUM CHLORIDE 0.9% 500 ML IV STA (13:32)
[2019-01-13] MEDS ORDERED: VANCOMYCIN INJ 1 GM in SODIUM CHLORIDE 0.9% 250 ML IV STA (13:38)
[2019-01-13 14:17] LABS: BASOPHILS % (AUTO) 0.3 %; EOSINOPHILS % (AUTO) 0.2 %; HGB - HEMOGLOBIN 11.3 g/dL (12.0-16.0); LYMPHOCYTES % (AUTO) 12.9 %; MEAN CORPUSCULAR HEMOGLOBIN 29.2 pg (27.0-31.0); MEAN CORPUSCULAR HGB CONC 34.6 g/dL (32.0-36.0); MEAN CORPUSCULAR VOLUME 84.3 fL (81.0-99.0); MEAN PLATELET VOLUME 8.1 fL (7.9-10.8); MONOCYTES % (AUTO) 10.6 %; PLT - PLATELET COUNT 126 10^3/uL (130-450); RED BLOOD COUNT 3.87 10^6/uL (4.20-5.40); WHITE BLOOD COUNT 10.6 x10^3/uL (4.8-10.8)
[2019-01-13 14:21] LABS: ABNORMAL LYMPHS % (MANUAL) 0 %
[2019-01-13 14:22] LABS: CALCIUM 8.7 mg/dL (8.5-10.3); CREATININE 0.6 mg/dL (0.4-1.0)
[2019-01-13 14:43] LABS: BAND NEUTROPHILS % (MANUAL) 17 %; LYMPHOCYTES # (MANUAL) 1.9 10^3/uL (1.5-3.5); LYMPHOCYTES % (MANUAL) 18 %; METAMYELOCYTES % (MANUAL) 2 %; MONOCYTES # (MANUAL) 1.2 10^3/uL (0.0-1.0); MYELOCYTES % (MANUAL) 1 %; NEUTROPHILS # (MANUAL) 7.2 10^3/uL (1.5-6.6); NEUTROPHILS % (MANUAL) 51 %
[2019-01-13 14:46] LABS: PLATELET MORPHOLOGY NORMAL APPEARANCE (NORMAL)
[2019-01-13 14:47] LABS: DIFFERENTIAL COMMENT MANUAL DIFFERENTIAL; PLATELET ESTIMATE, MANUAL NORMAL (130-450,000) (NORMAL)
[2019-01-13 15:51] VITALS: BP 122/76
== END 2019-01-13 16:03 | disposition home or self-care (01) ==
LOC: ED 12:36
DX: L76.34 Postprocedural seroma of skin and subcutaneous tissue following other procedure (principal); Y84.8 Other medical procedures as the cause of abnormal reaction of the patient, or of later complication, without mention of misadventure at the time of the procedure
CPT/HCPCS: 10160; 36415; 80048; 85025; 87070; 87205; 96365; 96366; 99283; J3370; 10060

== ENCOUNTER 2019-04-01 08:19 | Outpatient (CLI) | payer OTHER | END 2019-04-01 08:20 | disposition home or self-care (01) | LOC: DI 08:19 | PROVIDERS: ATTEND Nurse Practitioner Adult Health | DX: C50.919 Malignant neoplasm of unspecified site of unspecified female breast (principal); Z79.899 Other long term (current) drug therapy | CPT/HCPCS: 93306 ==

== ENCOUNTER 2019-06-09 08:38 | Emergency (ER) | payer OTHER ==
[2019-06-09 08:48] VITALS: BP 146/80
--- NOTE | 2019-06-09 10:21 | ED Physician Documentation ---
History of Present Illness - Stated complaint Stated Complaint: FEMALE - Chief complaint Chief Complaint: General - History obtained from History obtained from: Patient, Family - History of Present Illness Timing: Last night - Additonal information Additional information: 59-year-old female who is undergoing treatment for breast cancer has undergone chemo therapy and lumpectomy in November she had a reexcision of the margins done 18 days ago and last night she noted a red spot in the middle of her nipple and some discomfort to the breast. She states that the swelling has begun to go down around the surgical site she is not having much in way of pain associated with all this but she became concerned and was asked by the on-call oncology nurse to come to the emergency department for evaluation. She has not had any drainage from the area she does not have any significant tenderness. 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 HEENT: Other Psych: Anxiety Musculoskeletal: None Derm: None - Past Surgical History Past Surgical History: Yes General: Other - Present Medications Home Medications: Ambulatory Orders Medication Instructions Recorded Confirmed Acetaminophen [Tylenol] 650 mg PO Q4HR PRN 01/09/19 05/28/19 Escitalopram [Lexapro] 10 mg PO DAILY 01/09/19 05/28/19 Lidocaine/Prilocaine 1 applic TOP PRN PRN 01/10/19 05/28/19 [Lidocaine-Prilocaine Cream] Magnesium Gutimate 1 tab ORAL DAILY 01/22/19 05/28/19 Acyclovir 400 mg PO DAILY 02/12/19 05/28/19 Cholecalciferol [Vitamin D3] 5,000 unit ORAL DAILY 02/12/19 05/28/19 Vitamin B Complex 1 each PO DAILY 02/12/19 05/28/19 - Allergies Allergies/Adverse Reactions: Allergies Allergy/AdvReac Type Severity Reaction Status Date / Time rita [From Biofreeze] Allergy Unknown Verified 06/09/19 08:48 capsaicin Allergy Unknown Verified 06/09/19 08:48 [From Salonpas (capsaicin/menthol)] meloxicam Allergy Hives Verified 06/09/19 08:48 menthol [From Biofreeze] Allergy Unknown Verified 06/09/19 08:48 Penicillins Allergy Hives Verified 06/09/19 08:48 - Social History Does the pt smoke?: No Smoking Status: Never smoker Does the pt drink ETOH?: Yes Does the pt have substance abuse?: No - Immunizations Immunizations are current?: Yes - POLST Patient has POLST: Yes POLST Status: Full Code PD ED PE NORMAL - Vitals Vital signs reviewed: Yes (hypertensive ) - General General: Alert and oriented X 3, No acute distress, Well developed/nourished, Other (pleasant female with about a month of post chemo hair grown is in no distress) - HEENT HEENT: Atraumatic, PERRL, EOMI - Neck Neck: Supple, no meningeal sign - Respiratory Respiratory: No respiratory distress, Other (Exam of the left breast shows a normal appearing breast with an incision laterally without inflamtion, tenderness or drainage. There is inversion of the central portion of the nipple without drainage or erythema. ) - Abdomen Abdomen: Soft, Non tender - Back Back: No spinal TTP - Derm Derm: Normal color, Warm and dry, No rash - Extremities Extremities: No deformity, No edema - Neuro Neuro: Alert and oriented X 3, traffic engineer 2-12 intact, No motor deficit, No sensory deficit, Normal speech Eye Opening: Spontaneous Motor: Obeys Commands Verbal: Oriented GCS Score: 15 - Psych Psych: Normal mood, Normal affect Results - Vitals Vitals: Vital Signs - 24 hr 06/09/19 08:45 Temperature 36.7 C Heart Rate 71 Respiratory 14 Rate Blood Pressure 146/80 H O2 Saturation 97 Oxygen O2 Source Room air PD MEDICAL DECISION MAKING - ED course Complexity details: considered differential, d/w patient, d/w family ED course: 59-year-old female recovering from breast surgery on the left side has no significant tenderness erythema or drainage from the wound or to the breast itself. I am hard pressed to diagnose infection or any other abnormality. I have asked the patient to return to the emergency department should she developed signs and symptoms consistent with infection. Departure - Departure Disposition: 01 Home, Self Care Clinical Impression: Post-operative state Condition: Stable Health Concerns: possible infection in surgical site Plan of Treatment: reassurance today available for immediate follow up Care Goals: provide safe follow up if infection becomes apparent. Assessment: post operative healing. Instructions: ED Wound Check Post Op No Infec Follow-Up: Owen Orozco MD [Primary Care Provider] - Comments: Today it does not appear that your surgical site is infected. I suspect the symptoms you are having are related to healing. If signs and symptoms of infection develop throughout the day return to the emergency department at any time. If you develop redness increasing tenderness specific swelling or drainage return here for reevaluation.
== END 2019-06-09 10:33 | disposition home or self-care (01) ==
LOC: ED 08:38
DX: C50.912 Malignant neoplasm of unspecified site of left female breast (principal); Z98.890 Other specified postprocedural states
CPT/HCPCS: 99282

== ENCOUNTER 2019-06-21 10:24 | Outpatient (CLI) | payer OTHER ==
--- NOTE | 2019-06-24 08:38 | DEXA Report ---
Reason: L BREAST CA Procedure Date: 06/21/2019 Accession Number: [id number] / [id number] Procedure: DEX - Dexa Spine and/or Hip CPT Code: FULL RESULT: EXAM: Dexa Spine and/or Hip DATE: 06/21/2019 10:52 AM CLINICAL HISTORY: L BREAST CA TECHNIQUE: Dual energy x-ray absorptiometry (DXA) was performed on a [employer] System. Regions measured are the AP Spine, femoral neck, and if needed forearm. COMPARISON: None. In accordance with the International Society for Clinical Densitometry (ISCD) guidelines, data from previous exams may be reanalyzed using current recommendations and techniques. This is done to allow a more accurate basis for comparison with the current study. FINDINGS: The data for the lumbar spine is as follows: BMD (g/cm/cm) T-SCORE Z-SCORE REGION L1 1.054 -0.6 0.5 L2 1.027 -1.4 -0.3 L3 1.137 -0.5 0.6 L4 1.201 0.0 1.1 TOTAL 1.112 -0.6 0.5 NOTE: All evaluable vertebrae are used for classification The data for the hip is as follows: BMD (g/cm/cm) T-SCORE Z-SCORE REGION Neck 0.846 -1.4 -0.2 TOTAL 0.977 -0.2 0.6 NOTE: The femoral neck or total proximal femur, whichever is lowest, is used for classification. IMPRESSION: THE WHO CLASSIFICATION BASED ON THE INTERNATIONAL REFERENCE STANDARD IS OSTEOPENIA. THE FRACTURE RISK IS INCREASED. RECOMMENDATION: Patients with diagnosis of osteoporosis or osteopenia should have regular bone mineral density assessment. For those eligible for Medicare, routine testing is allowed once every 2 years. Testing frequency can be increased for patients who have rapidly progressing disease or for those who are receiving medical therapy to restore bone mass. COMMENT: World Health Organization (WHO) definitions for osteoporosis and osteopenia: NORMAL BMD: T-score at -1.0 or higher, fracture risk is low OSTEOPENIA BMD: T-score between -1.0 and -2.5, fracture risk is increased. OSTEOPOROSIS BMD: T-score at -2.5 or lower, fracture risk is high. National Osteoporosis Foundation recommends: 1. Obtain adequate dietary calcium (at least 1200 mg per day) and vitamin D (400-800 international units per day). 2. Participate, as appropriate, in regular weightbearing and muscle-strengthening exercise. 3. Avoid tobacco use and reduce alcohol and caffeine intake. 4. For more detailed information see the website at www.NOF.org.
== END 2019-06-21 10:25 | disposition home or self-care (01) ==
LOC: DI 10:24
PROVIDERS: ATTEND Internal Medicine Hematology & Oncology
DX: C50.912 Malignant neoplasm of unspecified site of left female breast (principal); M85.89 Other specified disorders of bone density and structure, multiple sites
CPT/HCPCS: 77080

== ENCOUNTER 2019-07-01 07:53 | Outpatient (CLI) | payer OTHER | END 2019-07-01 07:54 | disposition home or self-care (01) | LOC: DI 07:53 | PROVIDERS: ATTEND Internal Medicine Hematology & Oncology | DX: C50.912 Malignant neoplasm of unspecified site of left female breast (principal); I07.1 Rheumatic tricuspid insufficiency | CPT/HCPCS: 93306 ==

== ENCOUNTER 2019-09-26 07:52 | Outpatient (CLI) | payer OTHER | END 2019-09-26 07:53 | disposition home or self-care (01) | LOC: DI 07:52 | PROVIDERS: ATTEND Internal Medicine Hematology & Oncology | DX: C50.912 Malignant neoplasm of unspecified site of left female breast (principal); I27.20 Pulmonary hypertension, unspecified | CPT/HCPCS: 93306 ==

== ENCOUNTER 2020-11-25 09:35 | Outpatient (CLI) | payer OTHER ==
[2020-11-25 10:38] LABS: ESTIMATED AVERAGE GLUCOSE 111 mg/dL (70-100); HEMOGLOBIN A1c% 5.5 % (4.27-6.07)
== END 2020-11-25 09:36 | disposition home or self-care (01) ==
LOC: LAB 09:35
PROVIDERS: ATTEND Naturopath
DX: G62.0 Drug-induced polyneuropathy (principal); M85.80 Other specified disorders of bone density and structure, unspecified site
CPT/HCPCS: 36415; 82306; 82607; 83036; 84425

== ENCOUNTER 2022-05-31 10:03 | Outpatient (CLI) | payer OTHER ==
[2022-05-31 12:20] LABS: ESTIMATED AVERAGE GLUCOSE 114 mg/dL (70-100); HEMOGLOBIN A1c% 5.6 % (4.27-6.07)
== END 2022-05-31 10:04 | disposition home or self-care (01) ==
LOC: LAB 10:03
PROVIDERS: ATTEND Naturopath
DX: C50.912 Malignant neoplasm of unspecified site of left female breast (principal); G62.0 Drug-induced polyneuropathy; M85.80 Other specified disorders of bone density and structure, unspecified site; K57.92 Diverticulitis of intestine, part unspecified, without perforation or abscess without bleeding
CPT/HCPCS: 36415; 82306; 82525; 83036; 84630; 85651; 86140

== ENCOUNTER 2024-07-05 11:30 | Outpatient (CLI) | payer MEDICARE, OTHER | END 2024-07-05 11:31 | disposition home or self-care (01) | LOC: LAB 11:30 | PROVIDERS: ATTEND Physician Assistant | DX: N30.90 Cystitis, unspecified without hematuria (principal) | CPT/HCPCS: 87086 ==